=== PATIENT | male | born 1990 | race Caucasian/White ===

== ENCOUNTER 2024-12-05 17:29 | Emergency (ER) | payer BC, SELFPAY ==
[2024-12-05 17:32] VITALS: BP 123/78
[2024-12-05 17:54] LABS: Hematocrit 42.2 % (39.0-52.0); Hemoglobin 15.4 g/dL (13.0-18.0); Mean Corp Hgb Conc. 36.5 g/dL (33.0-37.0); Mean Corpuscular Volume 80.7 fL (80.0-94.0); Nucleated Red Blood Cells % 0 % (-); Platelet Count 211 10^3/uL (130-400); Red Cell Dist. Width 11.6 % (11.5-14.5)
[2024-12-05 18:10] LABS: ALT (SGPT) 28 U/L (0-50); AST (SGOT) 26 U/L (17-59); Albumin 5.1 g/dl (3.5-5.0); Alkaline Phosphatase 71 U/L (38-126); Blood Urea Nitrogen 24 mg/dl (9-20); Calcium 10.0 mg/dl (8.4-10.2); Carbon Dioxide 25 mmol/L (22-30); Chloride 104 mmol/L (98-107); Glucose 103 mg/dl (70-99); Potassium 3.6 mmol/L (3.5-5.1); Sodium 137 mmol/L (135-145); Total Protein 7.9 g/dl (6.3-8.2); eGFR > 60.00
[2024-12-05 18:27] LABS: Troponin I < 0.012 ng/ml
[2024-12-05 18:58] VITALS: BP 112/65
[2024-12-05 19:00] VITALS: BP 111/64
[2024-12-05 19:04] VITALS: BMI 24.6
--- NOTE | 2024-12-05 19:58 | ED.GENMED ---
History of Present Illness
General
Chief Complaint: Chest Pain
Time Seen by Provider: 12/05/24 18:53
History of Present Illness
History of Present Illness:
33-year-old male without any significant past medical history presenting to the emergency department for episode of left-sided chest discomfort. Patient reports every few months, he gets an abnormal sensation in his chest. He followed up with his
primary care doctor, had an EKG. He is set to schedule an echocardiogram and a Holter monitor. He also made a cardiology appointment for February. Denies any present chest pain. Notes that his symptoms often occur at nighttime and often has gas
in his chest. Denies any personal cardiac history or family cardiac history. Denies fever or cough. Does have some underlying anxiety. Denies abdominal pain or GI symptoms or additional acute medical complaints
Phy Exam
Physical Exam
Physical Exam:
General: Well-appearing, no clinical signs of dehydration, nontoxic and in no acute distress
HEENT: protecting airway
Neck: appears supple
CV: Normal heart rate, regular rhythm, no evidence of cyanosis
Resp: No accessory muscle use, no increased work of breathing, lungs clear to auscultation bilaterally
Abd: Soft and non-distended, no tenderness to palpation, normal bowel sounds
Extremities: No deformities, no swelling, no erythema, pulses and sensation intact
Neuro: alert, no focal neurologic deficit
: deferred
Rectal: deferred
Psych: Normal affect
Skin: Intact
Scores
Heart Score for Chest Pain Patients
STEMI patient?: No
History: Slightly or Non-Suspicious
ECG: Normal
Age: </= 45 years
Risk Factors: No Risk Factors
Troponin: </= Normal Limit
Heart Score for Chest Pain Patients: 0
Heart Score Risk: 2.5% MACE over next 6 weeks
Course
Orders/Labs/Results
Orders:
Orders
12/05/24 17:30
Electrocardiogram (*1) Urgent
Reason for Study: Chest Pain
EKG- Treatment ONCE
12/05/24 17:44
Complete Blood Count/With Diff Urgent
Troponin I Urgent
12/05/24 17:45
Comprehensive Metabolic Panel Urgent
Abnormal Lab Results
12/05/24 12/05/24
17:44 17:45
Absolute Lymphs (auto) 4.0 H 10^3/uL
(1.2-3.4)
BUN 24 H mg/dl
(9-20)
Glucose 103 H mg/dl
(70-99)
Albumin 5.1 H g/dl
(3.5-5.0)
12/05/24 17:44
12/05/24 17:45
Vital Signs
Initial and Last Documented VS:
Initial Vital Signs
Temp Pulse Resp BP Pulse Ox
97.6 F 96 20 123/78 98
12/05/24 17:32 12/05/24 17:32 12/05/24 17:32 12/05/24 17:32 12/05/24 17:32
Last Documented Vital Signs
Temp Pulse Resp BP Pulse Ox
97.6 F 60 13 108/68 100
12/05/24 17:32 12/05/24 20:15 12/05/24 20:15 12/05/24 20:00 12/05/24 20:15
MDM/Problems Addressed
MDM/Problems Addressed:
33-year-old male without significant past medical history presenting for evaluation of a sensation in his chest. Vital signs on arrival are normal.
On exam, patient resting comfortably, no acute distress or discomfort. Patient is currently asymptomatic. EKG without any abnormality. Patient without any significant cardiac risk factors, currently symptom-free. Without concern for ACS. Low
risk by heart score. Patient describes the symptoms as lasting only a few seconds. Description, sound could be having benign PVCs. Screening laboratory analysis unremarkable, normal electrolyte panel. Normal blood counts. Patient is already set
up to get a Holter monitor, echo, cardiology which I feel is an appropriate outpatient plan. Feel stable for discharge with close outpatient follow-up. Return precautions discussed and patient verbalized under
*Pulse Oximetry
SaO2: 100
Oxygen Mode of Delivery: Room air
Patient hypoxic: no
*EKG
Interpreted by ED Provider?: Yes
EKG Intrepretation Date: 12/05/24
EKG Intrepretation Time: 20:02
Interpretation: normal
Heart Rate: 82
Rate: normal
Rhythm: sinus
[place]: normal axis
Interval: normal interval
QRS Pattern: normal QRS
Ischemia: no ischemia
*Critical Care Note
Total Time (30-74mins, 75-104mins- exclusive of procedures): Not Applicable
ED Attending Note
-
Portions of this chart may have been created with voice recognition software.� Occasional wrong word or��sound alike� substitutions may have occurred due to the inherent limitations of voice recognition software.
Discharge Plan
Departure
Patient Disposition: Home (Routine Discharge)
Date of Disposition: 12/05/24
Time of Disposition: 20:09
Patient with high blood pressure during this ER visit?: No
Condition: Good
Discharge Problem:
Heart palpitations
Referrals:
Griselda Larson PA-C [Family Provider]
Activity Restrictions/Additional Instructions:
You were seen in the emergency department for chest discomfort
You were found to have reassuring laboratory analysis and EKG. 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
Please follow-up closely with your primary care physician.
Return to the emergency department for any worsening of your symptoms, or any development of chest pain, difficulty breathing, abdominal pain with persistent vomiting and inability to tolerate food or liquid by mouth (concern for dehydration),
weakness, headache or confusion, fever greater than 100.4, or any additional symptoms that are concerning to you.
Thank you for choosing [facility].
Interventions
Interventions:
*Risk Screen - Suicide Last Done: 12/05/24 17:32
*General Assessment Last Done: 12/05/24 17:32
*Neglect/Abuse Screening Last Done: 12/05/24 19:05
*ED- Fall Risk Assessment Last Done: 12/05/24 19:05
*ED COVID-19 Vaccine History Last Done: 12/05/24 19:05
*Nursing Disposition Last Done: 12/05/24 20:34
ED- Cardiac Assessment Last Done: 12/05/24 19:05
Discharge Date and Time
Discharge Date/Time: 12/05/24 20:34
Print Language: [email or web address]
[2024-12-05 20:00] VITALS: BP 108/68
== END 2024-12-05 20:34 | disposition home or self-care (01) ==
LOC: EMR 17:29
PROVIDERS: EMERGENCY PHYSICIAN Student in an Organized Health Care Education/Training Program; FAMILY PHYSICIAN Physician Assistant Medical
DX: R00.2 Palpitations (principal); R07.89 Other chest pain
CPT/HCPCS: 99284; 80053; 84484; 85025; 93005

== ENCOUNTER → 2024-12-21 08:03 | Outpatient (REF) | payer BC, SELFPAY | LOC: RCS 08:03 | PROVIDERS: ATTENDING PHYSICIAN Physician Assistant Medical | DX: R00.2 Palpitations (principal); R00.1 Bradycardia, unspecified; Z86.19 Personal history of other infectious and parasitic diseases | CPT/HCPCS: 93225; 93226; 93306 ==